=== PATIENT | male | born 1950 | race Two or more races ===

== ENCOUNTER 2024-07-08 15:42 | Outpatient (RCR) | payer OTHER, SELFPAY ==
--- NOTE | 2024-07-13 22:58 | CTCFLWUP_ITS ---
Patient: CRISTOBAL ALVAREZ : 1950 Page 7 of 7 FOLLOW UP NOTE DATE OF SERVICE 07/08 NAME: CRISTOBAL ALVAREZ ACCOUNT: [id number] : 1950 AGE: 74 DIAGNOSIS: Metastatic pancreatic adenocarcinoma with hepatic mets (07/04/2022) Currently on NALIRIFOX (10/31/2023??) s/p gemcitabine and Abraxane. Discontinued due to progression S/p FOLFIRINOX. Discontinued due to progression Pulmonary embolism was placed on Eliquis and subsequently Lovenox and stopped secondary to recent ble eding Severe iron deficiency anemia secondary to bleeding REASON FOR TODAY?S VISIT: This was a telephone visit. Patient's requested a telephone appointme nt.. According to her patient is still in pain and they are requesting for IR guided celiac block. Request was made to me to follow-up with [facility] so it can be done at their in [place]. HISTORY OF PRESENT ILLNESS: Cristobal Alvarez is a 74-year-old ENG speaking male colitis, mild perip heral neuropathy has the following oncology history. 06/05/2022: CT scan of the abdomen pelvis was done to evaluate the cause for abdominal discomfort. C T showed irregular heterogeneous hypodense mass in the pancreatic tail with left adrenal nodule and 2 hepatic lesions suspicious for metastasis. 06/15/2022: Mr. Alvarez was diagnosed with metastatic pancreatic adenocarcinoma with liver mets. The pa tient had endoscopic ultrasound-guided fine-needle aspiration of the mass of the pancreatic tail. CT scans done at the time apparently showed mass lesion in the pancreas. June 2022: Mr. Alvarez had duodenal stent placement. 07/03/2022: 08/04/2022 - 04/27/2023: Mr. Alvarez was treated with 10 cycles of gemcitabine and nab-paclitaxel. 05/02/2023: PET CT scan showed significant progression. 05/21/2023: Mr. Alvarez received first cycle of modified FOLFIRINOX. 10/16/2023: CT scan of the chest abdomen and pelvis with oral and IV contrast 10/17/2023: The patient received her last dose of modified FOLFIRINOX. Irinotecan doses were reduced due to persistent diarrhea 10/31/2023: Mr. Alvarez is started on NALIRIFOX 01/07/2024: CT scan of the chest abdomen and pelvis with IV contrast 01/09/2024: Mr. Alvarez had her sixth cycle of NALIRIFOX. CA 19?9 trend. 10/24/2023: 7523 11/27/2023: 50-59 12/11/2023: 5366 01/21/2024: [facility] diagnostic test?BRCA 1and2 negative 12/25/2023: 3590. 01/22/2024: CA 19?9 is 2700. 01/29/2024: [facility] diagnostic test 02/11/2024: HER2/monique negative 02/20/2024: CA 19?9 is 2177. PAST MEDICAL HISTORY: PANCRATIC CA HX OF KIDNEY STONES DIABETES ANEMIA PAST SURGICAL HISTORY: DUADNAL?STENT?RECTAL?CYST??2021 MEDICATIONS: 1. atropine - 0.4 mg 1 tab Three times a day 2. Compazine - 10 mg 10 mg three times a day prn nausea 3. Culturelle - 10 BILLION Capsule As directed 4. dextran 70-hypromellose - 1 Twice a Day 5. gabapentin - 300 mg 1 Capsule one cap po twice a day 6. gabapentin - 100 mg 1 tab Three times a day 7. glipiZIDE - 10 mg 1 tab Daily 8. glucose - 4 gram 1 tab As directed 9. hydrocodone-acetaminophen - 5-325 mg 1 tab As directed 10. Imodium A-D - 2 mg 2 tab prn as per instructions 11. Insulin Syringe - 1/2 mL 30 1 Daily 12. Lomotil - 2.5-0.025 mg 1 tab one po four times a day prn diarrhea 13. loperamide - 2 mg 1 Capsule As directed 14. magnesium oxide - 400 mg magnesium 1 tab Twice a Day 15. mesalamine with cleansing wipe - 4 gram/60 mL 1 Every day before sleep 16. metFORMIN - 1,000 mg 1 tab Twice a Day 17. morphine - 15 mg 1 tab Twice a Day 18. naloxone - 4 mg/actuation 1 As directed 19. omeprazole - 40 mg 1 Capsule Twice a Day 20. ondansetron - 8 mg 1 tab Three times a day 21. Pancrelipase - 1 tab Three times a day 22. polyethylene glycoL - 3350 1 g(creat) Daily 23. polyvinyl alcohol - 1.4 % 1 Twice a Day 24. potassium chloride - 20 mEq 1 Daily 25. prochlorperazine maleate - 10 mg 1 tab As directed 26. sennosides - 8.6 mg 2 tab Twice a Day 27. Zofran - 8 mg 8 mg three times a day prn nausea?[facility] Meds? Medications Last Reconciled by Leesa Addison MA on 03/31/2024 ALLERGIES: No Known Drug Allergies ASSESSMENT: I discussed with the patient's and spoke to Dr. Grey at [place] Celiac block has already been ordered at [facility] It is also approved locally by insurance She agreed and now we can schedule the patient ADITHYA to help him with the pain Patient and appreciated the call Electronically signed by Dr. Vann
== END 2024-07-19 23:59 | disposition home or self-care (01) ==
LOC: SCTCTH 15:42
PROVIDERS: PCP Family Medicine; Referring Provider Family Medicine; Visit Provider Internal Medicine Hematology & Oncology
DX: C25.2 Malignant neoplasm of tail of pancreas (principal); C78.7 Secondary malignant neoplasm of liver and intrahepatic bile duct
CPT/HCPCS: 99212; G0463